=== PATIENT | female | born 1985 | race Caucasian/White ===

== ENCOUNTER 2020-07-12 20:43 | Inpatient (IN) | payer OTHER, MEDICAID ==
[~2020-07-12] VITALS: Ht 190.5 cm; Wt 145.1 kg
[2020-07-12] MEDS ORDERED: PREN27TA7 OR (21:38)
[2020-07-12] MEDS ORDERED: LIDOCAINE 2%HCL (LOCAL ANESTH.) INJ 20ML MDV IJ ONE (23:45)
[2020-07-12] MEDS ORDERED: LACTATED RINGER'S 1,000 ML IV SCH (23:45)
[2020-07-12] MEDS ORDERED: BUTORPHANOL TARTRATE 2 MG/1 ML VIAL IV PRN ×2 (23:45)
[2020-07-12] MEDS ORDERED: LACT. RINGERS/OXYTOCIN 20UNITS 1,000 ML IV ONE (23:58)
[2020-07-12] MEDS ORDERED: OXYTOCIN 10UNIT/ML 1ML VIAL ONE (23:58)
[2020-07-12] MEDS ORDERED: METHYLERGONOVINE MALEATE 0.2 MG/ML AMP IM ONE (23:59)
[2020-07-13 00:31] LABS: Basophils # (auto) 0.1 10 ^3/uL (0-0.2); Basophils % (auto) 0.6 % (0.0-2.0); Eosinophils # (auto) 0 10 ^3/uL (0-0.8); Eosinophils % (auto) 0.3 % (0.0-7.0); Hematocrit 40.5 % (36.0-46.0); Hemoglobin 13.8 g/dL (12.2-16.2); Lymphocytes # (auto) 2.8 10 ^3/uL (0.4-5.4); Lymphocytes % (auto) 21.3 % (10.0-50.0); Mean Corpuscular Hemoglobin 31.4 pg (28.0-32.0); Mean Corpuscular Volume 92.3 fL (80.0-100.0); Monocytes # (auto) 0.7 10 ^3/uL (0-1.3); Monocytes % (auto) 5.3 % (0.0-12.0); Neutrophils # (auto) 9.7 10 ^3/uL (1.6-8.6); Neutrophils % (auto) 72.5 % (37.0-80.0); Platelet Count (auto) 161 10^3/uL (140-450); Red Cell Distribution Width 12.7 % (11.8-14.3); White Blood Cell 13.3 10^3/uL (4.4-10.8)
[2020-07-13 00:41] LABS: Partial Thromboplastin Time 26.6 sec (23.0-31.2)
[2020-07-13 01:06] LABS: Albumin 2.7 g/dL (3.4-5.0); Calcium 8.8 mg/dL (8.5-10.1)
[2020-07-13 01:33] LABS: BUN/Creatinine Ratio 13.8; Bilirubin, Total 0.4 mg/dL (0.2-1.0); Potassium 3.5 mmol/L (3.5-5.1)
[2020-07-13] MEDS ORDERED: IBUPROFEN 600 MG TAB PO ONE ×2 (02:42→02:43)
[2020-07-13] MEDS ORDERED: ACETAMINOPHEN 325 MG TAB PO PRN (02:45)
[2020-07-13 03:00] VITALS: BP 126/82
[2020-07-13] MEDS: DERMOPLAST 60ML BOTTLE TOP PRN (06:02)
[2020-07-13] MEDS: PHISODERM TOP SOLN 240ML BTL TOP PRN (06:03)
[2020-07-13] MEDS: WITCH HAZEL-GLYCERIN PAD TOP PRN (06:03)
[2020-07-13] MEDS: IBUPROFEN 600 MG TAB PO PRN ×4 (06:58→22:07)
[2020-07-13 07:30] VITALS: BP 115/57
[2020-07-13 08:49] LABS: Urine Bacteria NONE SEEN /hpf (None Seen); Urine Blood 3+ /uL (Negative); Urine Mucus FEW (None Seen); Urine Specific Gravity 1.023 (1.001-1.035); Urine WBC 123 /hpf (0 - 5); Urine WBC Clumps PRESENT /hpf (None Seen)
[2020-07-13 09:04] LABS: Alcohol, Urine < 3.0 mg/dL (0-10); Amphetamine Screen, Urine NEGATIVE (NEGATIVE); Barbiturate Scree,Urine NEGATIVE (NEGATIVE); Benzodiazephine Screen, Urine NEGATIVE (NEGATIVE); Cannabinoid Screen, Urine NEGATIVE (NEGATIVE); Cocaine Screen, Urine NEGATIVE (NEGATIVE); Opiate Scree,Urine NEGATIVE (NEGATIVE); Phencyclidine Screen, Urine NEGATIVE (NEGATIVE)
[2020-07-13 11:30] VITALS: BP 110/71
[2020-07-13 15:30] VITALS: BP 129/68
[2020-07-13 19:07] VITALS: BP 126/81
[2020-07-13] MEDS: DOCUSATE SOD 100 MG CAP PO SCH (22:04)
[2020-07-13 22:58] VITALS: BP 123/71
[2020-07-14 02:43] VITALS: BP 112/67
[2020-07-14] MEDS: IBUPROFEN 600 MG TAB PO PRN ×2 (03:06→10:21)
[2020-07-14] MEDS ORDERED: TETANUS-DIPTH-ACEL PERTUSSIS 0.5ML SYR Tdap IM ONE (06:45)
[2020-07-14 07:06] LABS: RPR Non Reactive (Non Reactive)
[2020-07-14 07:30] VITALS: BP 119/66
[2020-07-14] MEDS: DOCUSATE SOD 100 MG CAP PO SCH (10:20)
[2020-07-14 11:30] VITALS: BP 126/73
[2020-07-14] MEDS: DERMOPLAST 60ML BOTTLE TOP PRN (12:49)
[2020-07-14] MEDS: PHISODERM TOP SOLN 240ML BTL TOP PRN (12:49)
[2020-07-14] MEDS: WITCH HAZEL-GLYCERIN PAD TOP PRN (12:49)
== END 2020-07-14 13:27 | disposition home or self-care (01) | DRG 807 ==
LOC: OBSVTOIN 20:43 → LDRP 20:43
PROVIDERS: ADMIT Specialist; ATTEND Specialist
PROC: 10E0XZZ Delivery of Products of Conception, External Approach (ICD-10-PCS; principal; 2020-07-13)
PROC: 0KQM0ZZ Repair Perineum Muscle, Open Approach (ICD-10-PCS; 2020-07-13)
DX: O62.3 Precipitate labor (principal); Z37.0 Single live birth; Z20.822 Contact with and (suspected) exposure to COVID-19; O43.193 Other malformation of placenta, third trimester; Z88.2 Allergy status to sulfonamides; Z88.8 Allergy status to other drugs, medicaments and biological substances; O70.1 Second degree perineal laceration during delivery; Z3A.39 39 weeks gestation of pregnancy
CPT/HCPCS: 36415; 59025; 59409; 76818; 80053; 80307; 81001; 81002; 85025; 85610; 85730; 86592; 86850; 86900; 86901; 87426; 90715; 96360; 96365; 96366; 96372; G0378; J2590